=== PATIENT | female | born 1960 | race Caucasian/White ===

== ENCOUNTER 2018-05-17 15:26 | Inpatient (IN) | payer BC ==
[2018-05-17 16:41] VITALS: BMI 28.7
--- NOTE | 2018-05-17 17:36 | HP ---
CIWA Score Nausea/Vomitin-No Nausea/No Vomiting Muscle Tremors: None Anxiety: 1-Mildly Anxious Agitation: 0-Normal Activity Paroxysmal Sweats: No Perspiration Orientation: 0-Oriented Tacttile Disturbances: 0-None Auditory Disturbances: 0-None Visual Disturbances: 0-None Headache: 0-None Present CIWA-Ar Total Score: 1 - Admission Criteria OASAS Guidelines: Admission for Medically Managed Detox: Requires at least one of the followin. CIWA greater than 12 2. Seizures within the past 24 hours 3. Delirium tremens within the past 24 hours 4. Hallucinations within the past 24 hours 5. Acute intervention needed for co occurring medical disorder 6. Acute intervention needed for co occurring psychiatric disorder 7. Severe withdrawal that cannot be handled at a lower level of care (continued vomiting, continued diarrhea, abnormal vital signs) requiring intravenous medication and/or fluids 8. Patient presents the following: None of the above Admission Criteria Met: Admission criteria not met Admission ROS [facility] - [facility] Allergies/Adverse Reactions: Allergies Allergy/AdvReac Type Severity Reaction Status Date / Time No Known Allergies Allergy Verified 05/17/18 17:26 History of Present Illness: patient here requesting rehab from etoh use , reports 10 beers -12 beers not daily , increased in the last 2 weeks , reports drinking every now and then x 1 year, prior sobriety x 5 years . Reports she drinks mostly in the evenings , drinks 12 beers , then blacks out, latest use 2 nights ago , denies symptoms at this time . First age of use late 40's w/ divorce proceedings , would drink wine , then liquor , then drinking " all day long " , tried to commit suicide taking tylenol and Advil taken to [facility] , was in a program ([facility] x 1 year ), sober 5 years , relapsed after new relationship . Reports currently family relationship is strained, daughter has not talked to her in 4 years . Went to [facility] 2 nights taken by EMS called by sister , d/c today , did not bring paperwork, has hospital bracelet on wrist and hospital socks . tobacco : quit 5 years ago denies illicits . PMHX : denies PSych : depression , denies current SI / HI PShx : appy age 34 adult children SHx: lives w/ parents , unemployed , care-personal caregiver for elderly parents . Exam Limitations: No Limitations - Ebola screening Have you traveled outside of the country in the last 21 days: No Have you had contact with anyone from an Ebola affected area: No Have you been sick,other than usual withdrawal symptoms: No - Review of Systems Constitutional: See HPI EENT: reports: Other (reading glasses) Respiratory: reports: No Symptoms reported Cardiac: reports: No Symptoms Reported GI: reports: No Symptoms Reported : reports: No Symptoms Reported Musculoskeletal: reports: No Symptoms Reported Integumentary: reports: No Symptoms Reported Neuro: reports: No Symptoms reported Psychiatric: reports: Orientated x3, Depressed Patient History - Smoking Cessation Smoking history: Former smoker Have you smoked in the past 12 months: No Initiated information on smoking cessation: No Family Disease History - Family Disease History Family Disease History: Heart Disease: Father (heart dz ), CA: Sister (lymphoma , thryoid CA , in remission ), Other: Father, Sister, Son (TOM cocaine, ETOH ) Admission Physical Exam [facility] - Vital Signs Vital Signs: Vital Signs - 24 hr 05/17/18 16:40 Temperature 98.6 F Pulse Rate 75 Respiratory 18 Rate Blood Pressure 122/83 - Physical General Appearance: Yes: Mild Distress HEENTM: Yes: EOMI, Hearing grossly Normal, Normocephalic, Normal Voice Respiratory: Yes: Chest Non-Tender, Lungs Clear, Normal Breath Sounds Neck: Yes: No masses,lesions,Nodules, Trachea in good position Cardiology: Yes: Regular Rhythm, Regular Rate, S1, S2 Abdominal: Yes: Normal Bowel Sounds, Non Tender, Soft Genitourinary: Yes: Within Normal Limits Back: Yes: Normal Inspection Musculoskeletal: Yes: full range of Motion, Gait Steady Extremities: Yes: Normal Capillary Refill, Normal Range of Motion, Non-Tender Neurological: Yes: Normal Mood/Affect Integumentary: Yes: Normal Color - Diagnostic (1) Alcohol dependence Current Visit: Yes Status: Acute Qualifiers: Substance use status: uncomplicated Qualified Code(s): F10.20 - Alcohol dependence, uncomplicated S Breath Alcohol Content Breath Alcohol Content: 0 Urine Pregancy Test - Result Urine Test Results: Negative- NO Line Present Urine Drug Screen - Results Drug Screen Negative: Yes Inpatient Rehab Admission - Rehab Decision to Admit Inpatient rehab admission?: Yes - Initial Determination Are CD services needed?: Yes Free of communicable disease: Yes Not in need of hospitalization: Yes - Rehab Admission Criteria Previous failed treatment: No Poor recovery environment: No Comorbidities: No Lacks judgement: Yes Patient is meeting Inpatient Rehab admission criteria:: Yes
[2018-05-17] MEDS ORDERED: MAGNESIUM CITRATE 300 ML BOTTLE PO PRN (17:44)
[2018-05-17] MEDS ORDERED: hydrOXYzine PAMOATE 25 MG CAPSULE (FP) PO PRN (17:44)
[2018-05-17] MEDS ORDERED: MENTHOL/PHENOL 1 EACH UD MM PRN (17:44)
[2018-05-17] MEDS ORDERED: MAGNESIUM HYDROX 2400MG/30ML ORAL SUSPENSION 30 ML CUP PO PRN (17:44)
[2018-05-17] MEDS ORDERED: IBUPROFEN 400 MG TABLET (FP) PO PRN (17:44)
[2018-05-17] MEDS ORDERED: MAG HYDROX/AL HYDROX/SIMETH 30 ML UNIT-DOSE CUP PO PRN (17:44)
[2018-05-17] MEDS ORDERED: ACETAMINOPHEN 325 MG TABLET (FP) PO PRN (17:44)
[2018-05-17] MEDS ORDERED: MELATONIN 5 MG TABLETS PO PRN (22:00)
[2018-05-17] MEDS: THIAMINE HCL 100 MG TABLET (FP) PO SCH (22:28)
[2018-05-17] MEDS ORDERED: TUBERCULIN PPD 5 TU/0.1ML VIAL ID ONE (22:33)
[2018-05-18] MEDS: PRENATAL VITAMINS W/ FOLIC ACID TABLET (FP) PO SCH (09:59)
[2018-05-18 14:15] LABS: HEMATOCRIT 37.5 % (32.4-45.2); HEMOGLOBIN 12.6 GM/dL (10.7-15.3); MCH 30.9 pg (25.7-33.7); MCHC 33.5 g/dl (32.0-36.0); MEAN CELL VOLUME 92.2 fl (80-96); MEAN PLT VOLUME 8.2 fl (7.5-11.1); PLATELET COUNT 256 K/MM3 (134-434); RBC 4.07 M/mm3 (3.60-5.2); WHITE BLOOD COUNT 7.3 K/mm3 (4.0-10.0)
[2018-05-18 14:24] LABS: ALBUMIN 3.3 g/dl (3.4-5.0); ALK PHOS 162 U/L (45-117); ANION GAP 5 MMOL/L (8-16); BILIRUBIN,TOTAL 0.4 mg/dL (0.2-1); BLOOD UREA NITROGEN 14 mg/dL (7-18); CALCIUM 8.4 mg/dL (8.5-10.1); CHLORIDE 105 mmol/L (98-107); CO2 26 mmol/L (21-32); CREATININE 0.8 mg/dL (0.55-1.3); GLUCOSE,RANDOM 92 mg/dL (74-106); POTASSIUM 4.2 mmol/L (3.5-5.1); SGOT/AST 20 U/L (15-37); SGPT/ALT 10 U/L (13-61); SODIUM 136 mmol/L (136-145); TOT PROT 7.1 g/dl (6.4-8.2)
--- NOTE | 2018-05-18 17:15 | CONSULT ---
[facility] Psychiatric Consult - Data Date of interview: 05/18/18 Admission source: [facility] Identifying data: Direct admission from [facility] (inpatient psychiatric service). First admission to [facility] for this 57 y/o [place]-born female seeking rehabilitation care to address alcohol dependence co-morbid with MDD + Anxiety Disorder. Patient is , a mother of three, domiciled, unemployed and supported on food stamps. Substance Abuse History: Patient admits to an extensive history of alcohol abuse. Consumes over 10-12 beers on a daily basis. No drugs. More details in [facility] report. Ms Montanez denies smoking. Medical History: Patient endorses good general health. Noted history of appendectomy. Psychiatric History: Patient reports a history of five psychiatric hospitalizations ([facility]). Diagnosed with MDD and Anxiety Disorder. Prescribed zoloft 200 mg/day + trazodone 50 mg/hs. Ms Montanez is currently on Vivitrol maintenance (380 mg/monthly / just received February dose at [facility]). She is followed at the [facility] mental health clinic in the [place]. Patient endorses a history of multiple suicide attempts (via overdose with pain medications). Physical/Sexual Abuse/Trauma History: Not discussed. Patient declines. Additional Comment: Drug Screen is negative. Mental Status Exam - Mental Status Exam Alert and Oriented to: Time, Place, Person Cognitive Function: Good Patient Appearance: Well Groomed Mood: Hopeful, Euthymic Affect: Appropriate, Normal Range Patient Behavior: Appropriate (pleasant, well-mannered), Cooperative Speech Pattern: Clear (bilingual ), Appropriate Voice Loudness: Normal Thought Process: Intact, Goal Oriented Thought Disorder: Not Present Hallucinations: Denies Suicidal Ideation: Denies Homicidal Ideation: Denies Insight/Judgement: Fair Sleep: Poorly, Difficulty falling asleep Appetite: Good Muscle strength/Tone: Normal Gait/Station: Normal Psychiatric Findings - Problem List (Elim 1, 2,3) (1) Alcohol dependence Current Visit: Yes Status: Chronic Qualifiers: Substance use status: uncomplicated Qualified Code(s): F10.20 - Alcohol dependence, uncomplicated (2) MDD (major depressive disorder) Current Visit: Yes Status: Chronic (3) Insomnia Current Visit: Yes Status: Chronic - Initial Treatment Plan Initial Treatment Plan: Psychoeducation. Sleep hygiene. AA meetings. Motivational sessions. Psychotherapy (supportive, group, cognitive). Medications resumed as zoloft 200 mg po daily + trazodone 50 mg po hs. Side effects/benefits of both drugs are discusssed with the patient. Ms Montanez consented, verbally, to the inclusion of these medications to current regimen. Observation.
[2018-05-18] MEDS: THIAMINE HCL 100 MG TABLET (FP) PO SCH (21:26)
[2018-05-18] MEDS: traZODone HCL 50 MG TABLET (FP) PO SCH (21:26)
[2018-05-19] MEDS: SERTRALINE HCL 50 MG TABLET (FP) PO SCH (10:09)
[2018-05-19] MEDS: PRENATAL VITAMINS W/ FOLIC ACID TABLET (FP) PO SCH (10:09)
[2018-05-19] MEDS: THIAMINE HCL 100 MG TABLET (FP) PO SCH (21:38)
[2018-05-19] MEDS: traZODone HCL 50 MG TABLET (FP) PO SCH (21:38)
[2018-05-20 07:05] VITALS: BP 110/72; PULSE 94; TEMP 97.8
[2018-05-20] MEDS: PRENATAL VITAMINS W/ FOLIC ACID TABLET (FP) PO SCH (10:10)
[2018-05-20] MEDS: SERTRALINE HCL 50 MG TABLET (FP) PO SCH (10:10)
--- NOTE | 2018-05-20 13:46 | PN ---
Psychiatric Progress Note Vital Signs: Vital Signs Period Temp Pulse Resp BP Sys/Arnett Pulse Ox Last 24 Hr 97.8 F 94 18-18 110/72 Date of Session: 05/20/18 Chief Complaint:: Asked by medical staff to reevaluate the patient who decided to sign out. HPI: Patient addressed Alcohol dependcence cpmorbid with Major depessive disorder ROS: Unremarkable Current Medications: Active Medications Generic Name Dose Route Start Last Admin Trade Name Freq PRN Reason Stop Dose Admin Acetaminophen 650 mg 05/17/18 17:44 Tylenol - PO Q4H PRN FEVER Al Hydroxide/Mg Hydroxide 30 ml 05/17/18 17:44 Mylanta Oral Suspension - PO Q6H PRN DYSPEPSIA Eucalyptus/Menthol/Phenol/Sorbitol 1 each 05/17/18 17:44 Cepastat Lozenge - MM Q4H PRN SORE THROAT Hydroxyzine Pamoate 25 mg 05/17/18 17:44 05/19/18 10:09 Vistaril - PO 25 mg Q4H PRN Administration AGITATION Ibuprofen 400 mg 05/17/18 17:44 Motrin - PO Q6H PRN Pain level 4-6 Magnesium Citrate 300 ml 05/17/18 17:44 Citroma - PO Q48H PRN CONSTIPATION Magnesium Hydroxide 30 ml 05/17/18 17:44 Milk Of Magnesia - PO DAILY PRN CONSTIPATION Melatonin 5 mg 05/17/18 22:00 Melatonin PO HS PRN INSOMNIA Multivit/Folic Acid/Iron 1 tab 05/18/18 10:00 05/20/18 10:10 Vitamins (Sjr) - PO 1 tab DAILY ASHVIN Administration Sertraline HCl 200 mg 05/19/18 10:00 05/20/18 10:10 Zoloft - PO 200 mg DAILY ASHVIN Administration Thiamine HCl 100 mg 05/17/18 22:00 05/19/18 21:38 Vitamin B1 - PO 100 mg HS ASHVIN Administration Trazodone HCl 50 mg 05/18/18 22:00 05/19/18 21:38 Desyrel - PO 50 mg HS ASHVIN Administration Current Side Effect: No Lab tests ordered: No Lab tests reviewed: Yes Provider note:: patient decided to sigh out today since she feels strong after she was recieved Vivitrol 380 mg IM injection on at [facility].She identifies areas of difficulties,behaviors which contribute to relapse.Coping skills,support utilization has been discussed with patient as well as other resourses to maintain recovery.patient continues to find that Zoloft 200 mg po daily and Trazodone 50 mg po hs help to cope with depression, anxiety and sleeping difficulties .Scripts for 30 days supply provided. Scripts for 30 days provided.Patient will continue to address her issues at [facility].Next injection of Vivitrol will be done on June 13, 2018. Mental Status Exam - Mental Status Exam Alert and Oriented to: Time, Place, Person Cognitive Function: Grossly Intact Patient Appearance: Well Groomed Mood: Anxious Affect: Labile Patient Behavior: Cooperative Speech Pattern: Clear Voice Loudness: Normal Thought Process: Goal Oriented Thought Disorder: Not Present Hallucinations: Denies Suicidal Ideation: Denies Homicidal Ideation: Denies Insight/Judgement: Fair Sleep: Difficulty falling asleep Appetite: Good Muscle strength/Tone: Normal Gait/Station: Normal Psychiatric Treatment Plan - Problem List (1) Alcohol dependence Current Visit: Yes Qualifiers: Substance use status: uncomplicated Qualified Code(s): F10.20 - Alcohol dependence, uncomplicated (2) MDD (major depressive disorder) Current Visit: Yes
--- NOTE | 2018-05-20 14:19 | PN ---
[facility] Progress Note Note: PATIENT NOTIFIED BY RN THAT PATIENT REQUESTED TO SIGN OUT AMA. PATIENT SEEN BY TESTING SPECIALIST AND PATIENT STATES " I WANT TO FOLLOW UP WITH [facility] AND CONTINUE TREATMENT THERE". PATIENT ENCOURAGED TO COMPLETE REHAB AND EXPLAINED RISK FACTORS OF RELAPSE BUT CONTINUED WITH AMA PROCESS. PATIENT INFORMED TESTING SPECIALIST SHE HAS HER PARENTS HOME AND NEEDS TO TAKE CARE OF THEM WHICH IS WHY SHE IS SIGNING OUT AMA. PATIENT MEDICALLY STABLE AND DENIES SI/HI. PATIENT ENCOURAGED TO ATTEND [facility] OUTPATIENT PROGRAM TO PREVENT RELAPSE AND TO CONTINUE SUBSTANCE ABUSE TREATMENT. Vital Signs Temperature 97.8 F 05/20/18 07:04 Pulse Rate 94 H 05/20/18 07:04 Respiratory Rate 18 05/20/18 07:04 Blood Pressure 110/72 05/20/18 07:04 O2 Sat by Pulse Oximetry (%)
[2018-05-20 18:34] LABS: URINE APPEARANCE CLEAR; URINE BILIRUBIN NEGATIVE (<2.0 mg/dL); URINE COLOR LTYELLOW; URINE GLUCOSE (UA) NEGATIVE (NEGATIVE); URINE KETONE NEGATIVE (NEGATIVE); URINE LEUK ESTERASE 1+ (NEGATIVE); URINE NITRITE NEGATIVE (NEGATIVE); URINE PROTEIN NEGATIVE (NEGATIVE); URINE UROBILINOGEN NEGATIVE mg/dL (0.2-1.0)
[2018-05-20 18:49] LABS: EPI CELLS RARE /HPF (FEW); URINE BACTERIA RARE /hpf (NONE SEEN); URINE MUCUS RARE
== END 2018-05-20 15:05 | disposition left against medical advice (07) | DRG 894 ==
LOC: YASAS 15:26 → Y3E 17:59
PROVIDERS: ADMIT Neuromusculoskeletal Medicine & OMM; ATTEND Neuromusculoskeletal Medicine & OMM
PROC: HZ42ZZZ Group Counseling for Substance Abuse Treatment, Cognitive-Behavioral (ICD-10-PCS; principal; 2018-05-17)
DX: F10.20 Alcohol dependence, uncomplicated (principal); F32.9 Major depressive disorder, single episode, unspecified; G47.00 Insomnia, unspecified; Z87.891 Personal history of nicotine dependence
CPT/HCPCS: 36415; 80053; 81003; 81015; 85027; 86593